=== PATIENT | female | born 1990 | race African-American/Black ===

== ENCOUNTER 2022-01-14 23:02 | Observation (INO) | payer MEDICAID, SELFPAY ==
[~2022-01-14] VITALS: Ht 157.5 cm; Wt 61.2 kg
[2022-01-14 23:05] VITALS: BP 120/50
--- NOTE | 2022-01-14 23:08 | NUR ---
PT BIBA BLS BED 11
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
--- NOTE | 2022-01-14 23:24 | NUR ---
PT IS AGGRESSIVE AND AGITATE,UNABLE TO CARRY OUT ORDERS AT THIS TIME. RECEIVED VERBAL ORDER TO GIVE ATIVAN
[2022-01-14] MEDS ORDERED: LORazepam 2 MG/ML VIAL ONE (23:25)
[2022-01-14] MEDS ORDERED: LORazepam 2 MG/ML VIAL IM ONE (23:25)
[2022-01-14] MEDS ORDERED: NACL 0.9% 1,000 ML IV ONE (23:30)
[2022-01-14] MEDS ORDERED: HALOPERIDOL IM 5 MG/ML VIAL IM ONE (23:35)
[2022-01-15 00:03] LABS: BASOPHILS % (AUTO) 0.4 % (0.0-2.0); EOSINOPHILS % (AUTO) 0.3 % (0.0-4.0); HEMATOCRIT 40.8 % (36-48); HEMOGLOBIN 13.6 g/dL (12.0-16.0); LYMPHOCYTES # (AUTO) 4.7 K/uL (2.5-16.5); MEAN CORPUSCULAR HEMOGLOBIN 31 pg (27-31); MEAN CORPUSCULAR HGB CONC 34 g/dL (33-37); MEAN CORPUSCULAR VOLUME 91.7 fL (80-94); MONOCYTES # (AUTO) 0.8 K/uL (0.8-1.0); MONOCYTES % (AUTO) 6.3 % (1.7-9.3); NEUTROPHILS # (AUTO) 6.6 K/uL (1.8-7.7); PLATELET COUNT (AUTO) 437 K/uL (140-450); RED BLOOD CELL COUNT(AUTO) 4.45 MIL/uL (4.20-5.40); RED CELL DISTRIBUTION WIDTH 14.3 % (11.6-13.7); WHITE BLOOD COUNT (AUTO) 12.1 K/uL (4.8-10.8)
--- NOTE | 2022-01-15 00:11 | NUR ---
PT IS NO LONGER YELLING AND COOPERATIVE WITH TX.
--- NOTE | 2022-01-15 00:22 | NUR ---
[facility] CALLED AND UPDATED, PT IS READY FOR XRAY.
[2022-01-15 00:24] LABS: ALBUMIN 3.8 g/dL (3.4-5.0); ANION GAP 15.8 (8-16); ASPARTATE AMINOTRANSFERASE 30 U/L (15-37); CARBON DIOXIDE 25.2 mmol/L (21-32); CHLORIDE 100 mmol/L (98-107); CREATININE 1.1 mg/dL (0.6-1.3); GFR ARICAN-AMERICAN 75 mL/min (>90); GLUCOSE 212 mg/dL (74-106); SODIUM SERUM 137 mmol/L (136-145); TOTAL BILIRUBIN 0.4 mg/dL (0.0-1.0); UREA NITROGEN, BLOOD 16 mg/dL (7-18)
[2022-01-15 00:31] LABS: ACETAMINOPHEN < 0.5 ug/ml (10-30); SALICYLATE < 2.8 mg/dL (2.8-20.0)
[2022-01-15 00:53] LABS: CKMB RELATIVE INDEX 0.8 (0.0-2.5); CREATINE KINASE MB 2.6 ng/mL (0-3.6)
[2022-01-15 01:11] LABS: BARBITURATE, URINE NEGATIVE ng/ml (NEG <=200); BENZODIAZEPINE, URINE NEGATIVE ng/mL (NEG <=200); CANNABINOID, URINE NEGATIVE ng/mL (NEG <=50); COCAINE, URINE NEGATIVE ng/mL (NEG <=300); OPIATE, URINE NEGATIVE ng/mL (NEG <=2000); PHENCYCLIDINE SCREEN,URINE NEGATIVE ng/mL (NEG <=25)
--- NOTE | 2022-01-15 01:22 | NUR ---
PT APPEARS TO BE RESTING. EQUAL RISE AND FALL OF CHEST WALL. VSS. PT IS IN STABLE CONDITION. ALL NEEDS MET AT THIS TIME. BED LOCKED IN LOWEST POSITION, SIDE RAILS X2 FOR SAFETY.
[2022-01-15] MEDS ORDERED: NACL 0.9% 1,000 ML IV ONE ×2 (01:55)
[2022-01-15] MEDS ORDERED: LORazepam 2 MG/ML VIAL IVP ONE (03:35)
[2022-01-15] MEDS ORDERED: QUET400T PO (04:00)
[2022-01-15] MEDS ORDERED: METF-350 PO (04:00)
--- NOTE | 2022-01-15 04:00 | NUR ---
PT REPORTS DEPRESSION, TAKES SEROQUEL 650MG AND DM TAKES 1000MG OF METFORMIN. PER BODY CHECK, PT'S SKIN IS INTACT.
--- NOTE | 2022-01-15 04:35 | NUR ---
PT IS PAINTING FINGER NAILS.
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
[2022-01-15 05:10] VITALS: BP 108/64
--- NOTE | 2022-01-15 05:12 | NUR ---
Patient does not wish to proceed with medical care recommended by . Patient given information related to possible complications, up to and including , which could occur as a result of leaving hospital at this time. Patient verbalizes understanding of risks involved leaving against medical advice. Patient has signed AMA form.
== END 2022-01-15 05:12 | disposition left against medical advice (07) ==
LOC: MED 23:02 → MMU 01-15 04:32
PROVIDERS: ADMIT Family Medicine; ATTEND Family Medicine
DX: R41.82 Altered mental status, unspecified (principal); Z20.822 Contact with and (suspected) exposure to COVID-19; R00.0 Tachycardia, unspecified; F15.10 Other stimulant abuse, uncomplicated; Z53.29 Procedure and treatment not carried out because of patient's decision for other reasons; Z79.899 Other long term (current) drug therapy
CPT/HCPCS: 36415; 71045; 80053; 80305; 81025; 82550; 82553; 84703; 85025; 87426; 96360; 96361; 96372; 99284; G0378; G0480; G0482; J1630; J2060; Q0092